=== PATIENT | male | born 1930 | race Caucasian/White ===

== ENCOUNTER → 2017-01-22 | Outpatient (CLI) | payer MEDICARE, OTHER | END | disposition short-term general hospital (02) | LOC: CLCARD 12:00 | DX: R55 Syncope and collapse (principal); I45.10 Unspecified right bundle-branch block; I44.0 Atrioventricular block, first degree ==

== ENCOUNTER → 2017-02-05 | Outpatient (CLI) | payer MEDICARE, OTHER | END | disposition short-term general hospital (02) | LOC: CLCARD 07:49 | DX: R55 Syncope and collapse (principal); I44.2 Atrioventricular block, complete; I34.0 Nonrheumatic mitral (valve) insufficiency; I10 Essential (primary) hypertension ==

== ENCOUNTER → 2017-03-23 | Outpatient (CLI) | payer MEDICARE, OTHER | END | disposition short-term general hospital (02) | LOC: CLCARD 10:36 | DX: I44.1 Atrioventricular block, second degree (principal); I34.0 Nonrheumatic mitral (valve) insufficiency; I10 Essential (primary) hypertension; R55 Syncope and collapse ==